=== PATIENT | male | born 1985 | race Hispanic/Latino ===

== ENCOUNTER 2022-09-23 11:18 | Emergency (ER) | payer OTHER, SELFPAY ==
[~2022-09-23] VITALS: Ht 177.8 cm; Wt 72.6 kg
[2022-09-23] MEDS ORDERED: KETAMINE HCL 100 MG/ML 5ML VIAL IJ ONE (11:23)
[2022-09-23] MEDS ORDERED: FENTANYL 2500MCG+NS 250ML 250 ML IV ONE (11:38)
[2022-09-23] MEDS ORDERED: CEFAZOLIN SODIUM 2 GM VIAL IVP STA (11:47)
[2022-09-23] MEDS ORDERED: TETANUS/DIPHTHERIA TOXOID [ADULT] 0.5 ML VIAL IM ONE ×2 (12:00→13:16)
[2022-09-23 12:30] LABS: BASOPHILS % (AUTO) 0.5 % (0.0-5.0); EOSINOPHILS % (AUTO) 0.5 % (0.0-8.0); HEMATOCRIT 40.2 % (42-54); LYMPHOCYTES % (AUTO) 18.8 % (21.0-51.0); MEAN CORPUSCULAR HEMOGLOBIN 30.4 pg (27.0-33.0); MEAN CORPUSCULAR HGB CONC 34.3 g/dL (32.0-36.0); MEAN CORPUSCULAR VOLUME 88.5 fL (79-99); MONOCYTES % (AUTO) 6.5 % (3.0-13.0); NEUTROPHILS % (AUTO) 73.1 % (40.0-77.0); PLATELET COUNT (AUTO) 242 K/uL (130-400); RED BLOOD CELL COUNT(AUTO) 4.54 MIL/uL (4.50-6.20); WHITE BLOOD COUNT (AUTO) 8.2 K/uL (4.8-10.8)
[2022-09-23 12:43] LABS: CREATININE 1.5 mg/dL (0.5-1.5); POTASSIUM 3.6 mmol/L (3.5-5.1)
[2022-09-23 12:53] LABS: ALBUMIN 3.9 g/dL (3.5-5.0); TOTAL PROTEIN, SERUM 7.2 g/dL (6.0-8.3)
[2022-09-23] MEDS ORDERED: LACTATED RINGERS 1000ML 1,000 ML IV SCH (13:00)
[2022-09-23] MEDS ORDERED: BICT1TAB3 PO (13:18)
[2022-09-23] MEDS ORDERED: OLAN5TAB76 PO (13:19)
[2022-09-23] MEDS ORDERED: DEXAMETHASONE SOD PHOSPHATE 4 MG/ML 1ML VIAL IVP ONE (14:30)
[2022-09-23 14:36] VITALS: BP 111/67
== END 2022-09-23 14:50 | disposition short-term general hospital (02) ==
LOC: EDH 11:18
DX: T20.39XA Burn of third degree of multiple sites of head, face, and neck, initial encounter (principal); T31.11 Burns involving 10-19% of body surface with 10-19% third degree burns; X08.8XXA Exposure to other specified smoke, fire and flames, initial encounter; Y93.89 Activity, other specified; Y92.89 Other specified places as the place of occurrence of the external cause; Y99.8 Other external cause status
CPT/HCPCS: 99291; 94002; 31500; 96374; 71045 ×3; 82550; 80053; 85025; 82375; 83605; 36415; 90714; 90471; 93005 ×3; J3010; J3490; J0690